=== PATIENT | female | born 2000 | race African-American/Black ===

== ENCOUNTER 2021-11-14 19:25 | Emergency (ER) | payer BC, OTHER, MEDICAID ==
[~2021-11-14] VITALS: Ht 160 cm; Wt 53.0 kg
[2021-11-14] MEDS ORDERED: DIPHENHYDRAMINE 50MG/ML VIAL IV ONE (20:45)
[2021-11-14 21:15] LABS: BASOPHILS % 0.8 % (0.0-2.0); EOSINOPHILS % 3.2 % (0.0-5.0); HEMATOCRIT. 34.2 % (36.0-48.0); HEMOGLOBIN. 10.9 g/dL (12.0-16.0); LYMPHOCYTES % 31.1 % (20.0-50.0); MEAN CORPUSCULAR HEMOGLOBIN 25.7 pg (28.0-32.0); MEAN CORPUSCULAR VOLUME 80.8 fL (81.0-99.0); MEAN PLATELET VOLUME 8.8 fl (7.4-10.4); MONOCYTES % 12.7 % (2.0-8.0); NEUTROPHILS % 52.2 % (40.0-76.0); PLATELET 304 x1000/uL (130-400); RED BLOOD CELL COUNT 4.23 mill/uL (4.2-5.4); RED CELL DISTRIBUTION WIDTH 15.5 % (11.6-14.6)
[2021-11-14 21:29] LABS: CHLORIDE 106 mEq/L (98-107)
[2021-11-14 21:37] LABS: ETHANOL BLOOD < 10 mg/dL; HCG SCREEN NEGATIVE
[2021-11-14 23:19] VITALS: BP 116/83
[2021-11-14] MEDS ORDERED: B50 MT (23:30)
== END 2021-11-14 23:37 | disposition home or self-care (01) ==
LOC: ER 21:01
DX: G25.89 Other specified extrapyramidal and movement disorders (principal); R53.1 Weakness; R42 Dizziness and giddiness; F20.9 Schizophrenia, unspecified; T43.595A Adverse effect of other antipsychotics and neuroleptics, initial encounter; Y92.018 Other place in single-family (private) house as the place of occurrence of the external cause
CPT/HCPCS: 36415; 80053; 80307; 80320; 80329; 83690; 84443; 84703; 85025; 96374; 99283; J1200; G0480